=== PATIENT | male | born 1995 | race Hispanic/Latino ===

== ENCOUNTER 2017-07-29 17:30 | Emergency (ER) | payer OTHER, SELFPAY ==
[2017-07-29] MEDS ORDERED: Lidocaine 1% (PF) 30 ML VIAL ONE (18:21)
== END 2017-07-29 18:45 | disposition home or self-care (01) ==
LOC: ERS 17:30
DX: S41.112A Laceration without foreign body of left upper arm, initial encounter (principal); W26.9XXA Contact with unspecified sharp object(s), initial encounter
CPT/HCPCS: 12002; J2001